=== PATIENT | male | born 1995 | race Hispanic/Latino ===

== ENCOUNTER 2023-07-03 20:51 | Emergency (ER) | payer SELFPAY ==
[2023-07-03 23:28] LABS: #Monocytes 1.1 10x3/uL (0.0-1.1); %Basophils 0.2 % (0.0-2.0); %Eosinophils 0.1 % (0.0-6.0); %Lymphocytes 12.1 % (18.0-47.0); %Monocytes 11.8 % (0.0-10.0); %Neutrophils 75.6 % (40.0-75.0); Hematocrit 39.8 % (38.8-50.0); Hemoglobin 13.4 g/dL (13.5-17.5); Mean Corpuscular HGB CONC 33.7 g/dL (32.0-36.0); Mean Corpuscular Hemoglobin 30.5 pg (27.0-33.0); Mean Corpuscular Volume 90.5 fl (81.2-95.1); Mean Platelet Volume 10.5 fl (7.4-10.4); Platelet Count 217 10x3/uL (150-450); RBC Distribution Width 12.8 % (11.5-14.5); White Blood Cell (WBC) Count 9.3 10x3/uL (3.5-10.5)
[2023-07-03] MEDS ORDERED: Acetaminophen 500 MG TAB ONE (23:32)
[2023-07-03] MEDS ORDERED: Ibuprofen 200 MG TAB ONE (23:32)
[2023-07-03 23:42] LABS: ALT (SGPT) 27 U/L (8-55); AST (SGOT) 27 U/L (5-34); Alkaline Phosphatase 63 U/L (40-110); Anion Gap 14 mmol/L (10-20); BUN (Urea Nitrogen) 12 mg/dL (8.9-20.6); Bilirubin, Total 0.3 mg/dL (0.2-1.2); Calc. Creatinine Clearance 0 mL/min (70-130); Calcium 8.8 mg/dL (7.8-10.44); Carbon Dioxide 23 mmol/L (22-29); Chloride 104 mmol/L (98-107); Estimated GFR 76; Globulin 3.4 g/dL (2.4-3.5); Glucose 112 mg/dL (70-105); Magnesium 1.8 mg/dL (1.6-2.6); Potassium 4.2 mmol/L (3.5-5.1); Protein, Total 7.4 g/dL (6.0-8.3); Sodium 137 mmol/L (136-145)
[2023-07-04 00:25] LABS: SARS-CoV-2 NAA Rapid Test Not Detected (NotDetected)
== END 2023-07-04 01:45 | disposition home or self-care (01) ==
LOC: CSHERS 20:51
DX: A08.4 Viral intestinal infection, unspecified (principal); B34.9 Viral infection, unspecified; Z20.822 Contact with and (suspected) exposure to COVID-19
CPT/HCPCS: 80053; 83735; 85025; 96360; 96361